=== PATIENT | female | born 1980 | race Caucasian/White ===

== ENCOUNTER 2020-11-13 16:13 | Emergency (ER) | payer OTHER, SELFPAY ==
--- NOTE | 2020-11-13 16:16 | DI.RAD.S_ITS ---
PROCEDURE: XR ANKLE RT MIN 3V INDICATIONS: twisting injury TECHNIQUE: 3 views of the ankle were acquired. COMPARISON: None. FINDINGS: Bones: No fractures or dislocations. Ankle mortise is normally aligned. No suspicious bony lesions. The talar dome demonstrates no alice abnormality. A plantar calcaneal spur is seen. Soft tissues: No tibiotalar joint effusion. Achilles tendon appears normal. IMPRESSION: Plain film study within normal limits. Dictated by: Cameron Vargas M.D. on 11/13/2020 at 15:37 Approved by: Cameron Vargas M.D. on 11/13/2020 at 15:38
[2020-11-13 16:17] VITALS: PULSE 70; RESP 16; TEMP 37.2; O2SAT 99
[2020-11-13 16:18] VITALS: BP 129/79
--- NOTE | 2020-11-13 19:19 | ED_ITS ---
HPI - Extremity Injury (Lower) General Chief Complaint: Extremity Injury, Lower Stated Complaint: Messed Up Rt Ankle, Fall Time Seen by Provider: 11/13/20 19:17 Source: patient Mode of arrival: Ambulatory Limitations: no limitations History of Present Illness HPI Narrative: Patient is a 40-year-old female who presents with right ankle pain. She was carrying a basket down stairs when she she got to the bottom stai r she rolled her ankle. She is unable to walk on it is pain laterally no numbness tingling or weakness. MD complaint: ankle injury Review of Systems Review of Systems Narrative: GENERAL: Denies chills,fever HEENT: Denies throat pain RESPIRATORY: Denies dyspnea, cough, wheezing CARDIOVASCULAR: Denies chest pain, palpitations GASTROINTESTINAL: Denies nausea, vomiting MUSCULOSKELETAL: See HPI SKIN: No rash, no laceration, no pruritus NEUROLOGIC: Denies weakness, dizziness, headache, numbness 8 point review of systems is negative except for those stated above and HPI Exam Initial Vital Signs Initial Vital Signs: Vital Signs Temperature 99.0 F 11/13/20 16:17 Pulse Rate 70 11/13/20 16:17 Respiratory Rate 16 11/13/20 16:17 Pulse Oximetry 99 11/13/20 16:17 GENERAL: Well-appearing, well-nourished and in no acute distress. CARDIOVASCULAR: peripheral pulses in tact, cap refill <2 sec RESPIRATORY: No respiratory distress, speaks in full sentences without difficulty EXTREMITIES: Normal range of motion, no clubbing or edema. Neurovascularly intact Right lower extremity mild swelling laterally distal pedal pulse intact Achilles tendon intact no foot tenderness NEUROLOGICAL: Cranial nerves II through XII grossly intact. Normal gait and speech. SKIN: Warm, dry, no petechiae, no rashes or lesions. Course Orders Ordered: ED Orders 11/13/20 16:16 XR ankle RT min 3V Stat Vital Signs Vital signs: Vital Signs - 8 hr 11/13/20 20:16 Pulse Rate 66 Respiratory Rate 16 Blood Pressure 120/79 Pulse Oximetry 98 MDM - Extremity Injury (Lower) Imaging Data Extremity x-ray #1: Radiologist's Impression: PROCEDURE: XR ANKLE RT MIN 3V INDICATIONS: twisting injury TECHNIQUE: 3 views of the ankle were acquired. COMPARISON: None. FINDINGS: Bones: No fractures or dislocations. Ankle mortise is normally aligned. No suspicious bony lesions. The talar dome demonstrates no alice abnormality. A plantar calcaneal spur is seen. Soft tissues: No tibiotalar joint effusion. Achilles tendon appears normal. IMPRESSION: Plain film study within normal limits. Dictated by: Cameron Vargas M.D. on 11/13/2020 at 15:37 Discharge Plan Departure Patient Disposition: Home Clinical Impression: Ankle sprain and strain Instructions: Ankle Fracture Activity Restrictions/Additional Instructions: *You have been diagnosed with right ankle sprain *What to do: Use the crutches as needed, weightbear as tolerated, elevate, ice *Continue to take medications as directed Celebrex as directed Tylenol 1000 mg every 6 hours if needed for [id number] pain *Follow up with your primary care provider in 2-3 days *Return to ER if you should have increased swelling inability to walk or any new, worsening or concerning symptoms Referrals: [facility] Resources [Outside]
[2020-11-13 20:16] VITALS: BP 120/79; PULSE 66; RESP 16; O2SAT 98
== END 2020-11-13 20:16 | disposition home or self-care (01) ==
PROVIDERS: Emergency Provider Emergency Medicine
DX: S93.401A Sprain of unspecified ligament of right ankle, initial encounter (principal); S96.911A Strain of unspecified muscle and tendon at ankle and foot level, right foot, initial encounter; X50.1XXA Overexertion from prolonged static or awkward postures, initial encounter
CPT/HCPCS: 73610; 99282; 99283